=== PATIENT | female | born 1955 ===

== ENCOUNTER 2025-02-02 11:27 | Emergency (ER) | payer MEDICARE, SELFPAY ==
[2025-02-02 11:48] VITALS: BP 146/87; PULSE 86; RESP 16; TEMP 36.7; O2SAT 100; BMI 21.0
--- NOTE | 2025-02-02 12:13 | ED.GENADULT ---
HPI - General Adult General Chief complaint: Extremity Injury, Lower Stated complaint: R big toe numb Time Seen by Provider: 02/02/25 11:58 Source: patient Mode of arrival: ambulatory Limitations: no limitations History of Present Illness ED Provider: Gurdeep Adkins [facility] narrative: 70-year-old female with no significant past medical history presents to ED for numbness of right big toe for multiple months. Patient has been seen by multiple primary care providers and rigging foreman and she canceled them after they are consultation because she believe they do not know what they are doing. Patient denies any trauma, redness, bluish black discoloration, fever, chills, open wounds, pus discharge, or foul odor from right big toe. Patient wants an MRI. Patient has had normal x-rays in the past. Related Data Allergies Allergy/AdvReac Type Severity Reaction Status Date / Time No Known Allergies Allergy Verified 02/02/25 11:53 Review of Systems Review of Systems: RIght big toe numbness Yes all other systems are reviewed and are negative PMFSH Social History Social History Advance Directives: No Advance Directives Information Provided: No Do you have a plan to hurt others: No Plan Physical Exam ED Vital Signs: Vital Signs - 24 hr 02/02/25 11:48 02/02/25 12:40 Temperature 98.0 F 98.0 F Pulse Rate 86 86 Respiratory Rate 16 16 Blood Pressure 146/87 H 146/87 H Pulse Oximetry 100 100 Oxygen Delivery Method Room Air Room Air BMI result Body Mass Index 21.0 Const General: cooperative, healthy appearing, comfortable, no acute distress, well developed, alert, awake and Physically active Orientation/consciousness: patient oriented x3 HENMT Head: Yes normal to inspection, Yes No palpable skull fracture present, Yes normocephalic and Yes atraumatic Eyes General: appearance normal, both eyes and all related structures Neck Neck: Yes normal visual inspection, Yes full ROM, Yes no lymphadenopathy, Yes no meningeal signs, Yes trachea midline, Yes supple, No anterior neck swelling and No tender Chest Chest palpation & inspection: normal inspection of the chest and normal palpation of entire chest wall Resp Effort & Inspection: normal respiratory effort and able to speak in complete sentences Auscultation: clear to auscultation bilaterally Cardio Jugular venous distension: no JVD Heart sounds: S1 normal heart sound present and S2 normal heart sound present GI Inspection: Yes normal to inspection Palpation (GI): Soft to palpation, not firm, nontender, no guarding and not rigid General: Yes no CVA tenderness Back/Spine/Pelvis Back: no CVA tenderness and No back tenderness Skin General skin exam: no rashes or lesions noted, elasticity normal and turgor normal Neuro General: patient oriented x3, gait normal, tone normal, moves all extremities, Normal light touch and pain sensation, no meningeal signs, no focal motor deficits, CN's II-XI intact bilaterally and normal sensation to monofilament Extrem General: Yes normal to inspection, Yes full ROM and Yes capillary refill normal Ankle/foot/toe images: 1. Area of numbness as per patient, but yet she has sensation in the area when touched. Rest of extremity normal. Motor/neuro/vascular exam intact. Negative for erythema, ecchymosis, deformity, pus discharge, foul odor, open wound, or crepitus Psych Appearance: grossly normal, well kempt and not disheveled Medical Decision Making Medical Decision Making MDM Narrative: 70-year-old female presents to the ED with complaints of right big toe numbness for about 4-5 months without any trauma. Patient denies any redness, bluish black discoloration, hotness, coldness, swelling, fever, chills, calf pain, red rash, pus discharge, nonhealing wound, or foul odor. Patient denies any history of diabetes, hypertension. Patient has been seen by multiple rigging foreman and primary care provider. Patient states had had normal x-rays in the past. Patient was informed she will need an MRI. Patient comes to the ED requesting MRI. Physical exam negative for signs of osteomyelitis, diabetic foot, gout, septic joint, fracture, dislocation, arterial occlusion, DVT, necrotizing fasciitis, compartment syndrome, or any other life threatening eitologies. . Patient has sensation in foot. Patient does not want repeat x-ray. Patient request MRI. Patient informed MRI could not be done in the ED and should be ordered by PCP or rigging foreman. Patient informed to follow up with primary care provider, rigging foreman and neurologist. Not suspecting stroke. NIH score is 0. NO head CT scan indiciated. Patient explainaed worrsisome signs and informed to return to the ED if she has them. Differential Diagnosis Differential Diagnoses: The differential diagnosis associated with the presentation includes (Peripheral neuropathy numbness) Admission/Observation Consideration of admission/observation: Escalation of care including admission/observation considered Independent Historian Clinical information obtained from an independent historian. History obtained from or confirmed by: Other (Patient) Prescription Management I considered prescription management with: Other Discharge Plan Discharge Clinical Impression: Numbness of toes Patient Disposition: Home, Self-Care Instructions: Paresthesia (ED) Additional Instructions: Recommend follow-up with primary care provider. Recommend follow-up with rigging foreman. Return to the ED immediately for any redness, swelling, bluish black discoloration, hotness, coldness, red streaks, fever, chills, or any other concerning symptoms. Primary care provider needs to order outpatient MRI. [place] [facility] [place]Provider Group] (Right big toe numbness) [facility] [Provider Group] (Right big toe numbness) Wilbert Khan MD [Physician] - (Right big toe numbness) Stand Alone Forms: Work/School Release Interventions: ED Discharge Assessment Last Done: 02/02/25 12:40 Discharge Date/Time: 02/02/25 12:41 Print Language: Nepali
[2025-02-02 12:40] VITALS: BP 146/87; PULSE 86; RESP 16; TEMP 36.7; O2SAT 100
--- OUTSIDE RECORDS SUMMARY | 2025-02-02 14:50 | XMS_ITS | Clinical Summary ---
Author Organization [address] [place] [address] Address [address] [place] [address] Phone Care Team Providers Care Concrete Curer Name Role Phone Lela Lowery MD Primary Care Provider [phone] Allergies Active Allergy Reactions Criticality Noted Date Comments Lanolin 02/01/2017 Other Reaction(s): Hives/Urticaria Soap 02/01/2017 Other Reaction(s): Hives/Urticaria Ivory soap Medications aspirin 81 mg chewable tablet Take 1 Tablet by mouth. 3 Active vitamin B complex (B COMPLEX 1 ORAL) Take by mouth. Active blood pressure test kit-medium kit 1 Units by Does not apply route daily. 3 Active CALCIUM CARBONATE ORAL Take by mouth. Active celecoxib (CeleBREX) 200 mg capsule Take 1 Capsule by mouth. 3 Active CHOLECALCIFEROL, VITAMIN D3, ORAL Take by mouth. Active gabapentin (NEURONTIN) 100 mg capsule 1 tab by mouth twice daily 3 Active LUTEIN ORAL Take by mouth. Act bernadette MULTIVITAMIN ORAL Take by mouth. Activ e NUTRITIONAL SUPPLEMENTS ORAL Take by mouth. Active pantoprazole (PROTONIX) 40 mg EC tablet Take 1 Tablet by mouth. 3 Active traMADoL (ULTRAM) 50 mg tablet 3 Active ZINC ORAL Take by mouth. Activ e ammonium lactate (AmLactin) 12 % lotion Apply topically if needed for dry skin. 400 g 2 4 10/13/20 25 Active Active Problems Problem Noted Date Diagnosed Date Anxiety 09/08/2024 Hyperlipidemia 09/08/2024 Hypertension 09/08/2024 Major depression 09/08/2024 Herpes genitalis 09/06/2023 Odontoid fracture with type II morphology 2022 Overview (09/08/2024): b/l C1 lateral mass fractures Last Assessment & Plan: Patient is s/p fall while using her leaf blower 08/09/2023, lost her balance and fell on her left side, leaf blower hit her in the head, denies LOC, leaf blower actively with suctioning and her hair on her head, she had to walk into the house while bleeding from her scalp and holding the leaf blower overhead. She went to [facility], was found to have unstable fractures with nondisplaced odontoid fracture type II, asymmetric alignment of the dens and lateral masses of C1 suggesting instability, mildly comminuted nondisplaced fracture involving left lateral mass of C2 involving the vertebral foramen, CTA showed grade 1/2 injury of the left vertebral artery at the site of the C2 fracture. She had anterior dislocation right C1 lateral mass with respect to C2 lateral mass and posterior subluxation left C1 lateral mass with respect to C2 lateral mass. Head CT without acute hemorrhage. Patient was discharged home with an Hagerman collar. Patient states she does still have some neck pain 2-5/10, lives alone and is very independent, has been doing yard work, when she has increased activity her pain can get up to an 8/10. She denies any numbness tingling, pain or weakness in the arms or legs. She was discharged with gabapentin 100 mg 3 times daily, but wants to wean off of it. A month prior to her injury she had right hip replacement surgery, is no longer on Eliquis. She has been using ibuprofen in the morning and Tylenol through the day for her neck pain. Ms. Hayward has type II odontoid fracture, asymmetric alignment of the dens and lateral masses of C1 suggesting instability, left vertebral artery injury at the site of the C2 fracture into the foramen. Patient does not want to follow-up with trauma service at [facility]. I reviewed her case with Dr. Whitehead, it would be difficult to get open-mouth view x-ray to check C1 with patient in a rigid collar, Dr. Whitehead is recommending a follow-up CT scan in 2 months. I instructed the patient to stay in the rigid collar at all times. She states she had been told in the past by multiple people she could take the collar off at times, but states she typically leaves it on. She is requesting a refill on gabapentin, only has 10 tablets left at home, but plans to wean off over the next few weeks. I asked her to avoid NSAIDs to allow for bony healing. I gave her a prescription to get fitted with a new rigid cervical Hagerman collar. We reviewed imaging results together in detail. All questions answered. She will call with any additional questions or concerns. Peripheral venous insufficiency 09/06/2023 Osteoarthritis of right hip 08/09/2023 Urge incontinence 08/09/2023 Polyp of colon 04/01/2019 Chronic low back pain 08/07/2017 Lung nodule 08/07/2017 Overview (09/08/2024): Tiny, repeat in jul 2019 and 2020 Thyroid nodule 08/07/2017 Varicose veins of both lower extremities 017 Gastroesophageal reflux disease 03/13/2017 Chronic cough 02/01/2017 Overview (09/08/2024): Saw Umass, ph probe proved sig reflux. Non compliant with anti reflux diet. Pt refused reglan. Surgery not indicated unless she failes 3 mo of strict diet Toenail fungus 02/01/[address] of the chest 12/26/2016 Melanoma in situ 11/22/2016 Overview (09/08/2024): Right arm 09/2011 - excised Squamous cell skin cancer 11/22/2016 Overview (09/08/2024): Left forearm - ED&C Overactive bladder 10/16/2016 Encounters Date Type Department Care Team Description 02/02/2025 Telephone Orthopedic Surgery - [place] [id number] [address] Carlos Cornejo DPM from Last 3 Months Immunizations Name Administration Dates Next Due Influenza Quadravalent, MDCK , 0.5ml, with preservative (Flucelvax) 6mo and older 08/07/2017 Influenza trivalent, 0.5mL ( Fluad) 65yo and older 07/27/2023 Influenza trivalent, 0.5mL, preservative free (Fluarix; FluLaval; Fluzone) ages 6mo and older (Afluria) 3 years and older 08/24/2016,09/21/2010 Influenza trivalent, with preservative (Fluzone; Afluria) 6mo and older 07/11/2022,08/10/2021,08/13/2020,2018,08/19/2018,09/21/2010 Tdap Tetanus diptheria acell ular pertussis (Boostrix; Adacel) 7yo and older 08/19/2018 Zoster recombinant (Shingrix ) 19yo and older 10/31/2022,09/04/2022 Surgical History Surgery Date Site/Laterality Comments HIP ARTHROPLASTY 06/2023 Right PROCEDURE: HISTORICAL HIP REPLACEMENT; COMMENT: NEOS Medical History Medical History Date Comments Hypertension DX:Hypertension Hyperlipidemia DX:Hyperlipidemi a Anxiety DX:Anxiety Major depression DX:Major depres humaira Melanoma (CMS/HCC) DX:Melanoma ( HCC) Melanoma in situ 11/22/2016 DX:Melanoma in situ (HCC); COMMENT: Right arm 09/2011 - excised Squamous cell skin cancer 11/22/2016 DX:Squ amous cell skin cancer; COMMENT: Left forearm - ED&C Osteoarthritis of right hip DX:O steoarthritis of right hip GERD (gastroesophageal reflux disease) DX:GERD (gastroesophageal reflux disease) Pulmonary nodule, right DX:Pulmo nary nodule, right Urge incontinence DX:Urge incont inence Memory impairment DX:Memory impa irment Family History Medical History Relation Name Comments Heart attack Father Hypertension Father Other: liver cancer Father Breast cancer Mother Relation Name Status Comments Father Mother Social History Tobacco Use Types Packs/Day Years Used Date Smoking Tobacco: Former Smokeless Tobacco: Never Tobacco Cessation:Counseling Given: Not Answered Alcohol Use Standard Drinks/Week Comments Yes 0 (1 standard drink = 0.6 oz pur e alcohol) Comments Unknown Sex and Gender Information Value Date Recorded Sex Assigned at Not on file Legal Sex Female 9:54 PM EST Gender Identity Not on file Sexual Orientation Not on file Obstetrics History Last Filed Vital Signs Vital Sign Reading Time Taken Comments Blood Pressure 140/80 11/26/2023 2:14 PM EST Pulse 84 11/26/2023 1:59 PM EST Temperature - - Respiratory Rate - - Oxygen Saturation - - Inhaled Oxygen Concentration - - Weight 62.6 kg (138 lb) 10/13/2024 9:01 AM EST Height 172.7 cm (5' 7.99 ) 10/13/2024 9:01 AM ES T Body Mass Index 20.99 10/13/2024 9:01 AM EST Plan of Treatment Upcoming Encounters Date Type Department Care Team (Late st Contact Info) Description 08/31/2025 10:00 AM EST Office Visit Orthopedic Surgery - [place] [address] [facility] [address] [place] [id number] Carlos Cornejo, DPDevaughn 175 [facility] [address] [place] [address] Health Maintenance Due Date Last Done Comments Breast Cancer Screening 1955 Pneumococcal Vaccine: 50+ Years (1 of 2 - PCV) 01/02/1976 COVID-19 Vaccine (3 - Pfizer risk series) 05/04/2021 04/06/2021, 03/16/2021 Cholesterol Screening (Lipid Panel) 09/30/2022 08/07/2017 Colorectal Cancer Screening: Colonoscopy 09/30/2022 Depression Screening 09/30/2022 Falls Risk Assessment 09/30/2022 Medicare Annual Wellness Visit 09/30/2022 Osteoporosis Screening (Bone Density Screening) 09/30/2022 Social Influencers of Health Screening 09/30/2022 Hypertension/CHF/CAD Annual BMP Blood Test 10/14/2022 08/23/2017 DTaP,Tdap,and Td Vaccines (2 - Td or Tdap) 08/19/2028 08/19/2018 RSV Immunization Adult Patients (1 - 1-dose 75+ series) 01/02/2032 Hepatitis C Screening Completed 05/08/2016 Zoster Vaccines Completed 10/31/2022, 09/04/2022 Influenza Vaccine Completed 08/12/2024, , 07/11/2022, Additional history exists HIB Vaccines Aged Out No longer eligi ble based on patient's age to complete this topic HPV Vaccines Aged Out No longer eligi ble based on patient's age to complete this topic Hepatitis A Vaccines Aged Out No long er eligible based on patient's age to complete this topic Hepatitis B Vaccines Aged Out No long er eligible based on patient's age to complete this topic IPV Vaccines Aged Out No longer eligi ble based on patient's age to complete this topic MMR Vaccines Aged Out No longer eligi ble based on patient's age to complete this topic Meningococcal ACWY Vaccine Aged Out N o longer eligible based on patient's age to complete this topic Meningococcal B Vaccine Aged Out No l onger eligible based on patient's age to complete this topic RSV Immunization Patients Under 20 months Aged Out No longer eligible based on patient's age to complete this topic Varicella Vaccines Aged Out No longer eligible based on patient's age to complete this topic Procedures Procedure Name Priority Date/Time Associated Diagnosis Comments ANNUAL BMP BLOOD TEST Routine 08/23/2017 LIPID PANEL Routine 08/07/2017 HEPATITIS C SCREENING Routine 05/08/2016 from Last 3 Months or Most Recently Relevant to Health Maintenance Results * Annual BMP Blood Test (08/23/2017) Pathologist [facility] Annual BMP Blood Test Abstracted [facility] Provider HEALTH MAINTENANCE Final Result * Lipid panel (08/07/2017) Pathologist [facility] LDL/HDL Ratio 3 0 - 4 Triglycerides 117 0 - 150 mg/dL Cholesterol 144 0 - 200 mg/dL HDL 47 >=40 mg/dL LDL Cholesterol 74 0 - 100 mg/dL Blood Venous blood specimen / Unknown Historical Provider LAB BLOOD ORDERABLES Niki l Result * Hepatitis C Screening (05/08/2016) Pathologist [facility] Hepatitis C Screening Abstracted Historical Provider HEALTH MAINTENANCE Final Result from Last 3 Months or Most Recently Relevant to Health Maintenance Insurance MEDICARE [facility] MEDICA[employer]AGE Care Teams Concrete Curer Relationship Specialty Start Date End Date Lela Lowery MD PCP - General 04/10/23
--- OUTSIDE RECORDS SUMMARY | 2025-02-02 14:50 | XMS_ITS | Encounter Summary ---
Author Organization [facility] Address [id number] [place] [id number] Care Team Providers Care Porcelain Finish Sprayer Name Role Phone Lela Lowery MD Primary Care Provider [phone] Encounter Details Date Type Department Care Team (Late st Contact Info) Description 02/02/2025 Telephone Orthopedic Surgery - [place] [address] [phone] Carlos Cornejo DPM [address] [address] Social History Tobacco Use Types Packs/Day Years Used Date Smoking Tobacco: Former Smokeless Tobacco: Never Alcohol Use Standard Drinks/Week Comments Yes 0 (1 standard drink = 0.6 oz pur e alcohol) Comments Unknown Sex and Gender Information Value Date Recorded Sex Assigned at Not on file Legal Sex Female 9:54 PM EST Gender Identity Not on file Sexual Orientation Not on file documented as of this encounter Progress Notes * Lou Robles - 02/02/2025 2:04 PM EDT Deepti has come into the office requesting a MRI right great toe numbness please call when MRI orderis place documented in this encounter Plan of Treatment Upcoming Encounters Date Type Department Care Team (Late st Contact Info) Description 08/31/2025 10:00 AM EST Office Visit Orthopedic Surgery [facility] [address] [phone] Carlos Cornejo DPM [address] [address] documented as of this encounter Visit Diagnoses Not on filedocumented in this encounter Care Teams Porcelain Finish Sprayer Relationship Specialty Start Date End Date Lela Lowery MD PCP - General 04/10/23 documented as of this encounter
--- OUTSIDE RECORDS SUMMARY | 2025-02-02 14:51 | XMS_ITS ---
[facility] Name [facility] Encounters Encounter Type Encounter Reason Primary Diagnosis Location Date Ambulatory [facility] [place] 07/10/2024 Ambulatory [facility] [place] 07/10/2024
== END 2025-02-02 12:41 | disposition home or self-care (01) ==
PROVIDERS: Emergency Provider Emergency Medicine
DX: R20.0 Anesthesia of skin (principal)
CPT/HCPCS: 99282

== ENCOUNTER 2025-02-17 13:42 | Emergency (ER) | payer MEDICARE, SELFPAY ==
--- NOTE | ~2025-02-17 | CT_ITS ---
CLINICAL HISTORY: AMS CT Brain without contrast Comparison: None FINDINGS: Cortical sulci: There is diffuse prominence of the cortical sulci compatible with age-related atrophy. Ventricles: Normal for age Brain parenchyma: There is patchy lucency throughout the deep white matter indicating chronic microvascular leukomalacia. Extra-axial spaces: Normal Posterior Fossa: Normal Extracranial soft tissues: Normal Additional abnormality: None IMPRESSION: Age-related atrophy with chronic microvascular leukomalacia. No hemorrhage, mass effect, or acute findings identified. This document has been electronically signed by: Miranda Will MD on 02/17/2025 17:55:14
[2025-02-17 13:49] VITALS: BP 146/72; PULSE 94; O2SAT 99
[2025-02-17 14:08] VITALS: BP 159/92; PULSE 87; RESP 14; TEMP 36.2; O2SAT 99; BMI 19.8
--- NOTE | 2025-02-17 14:29 | ED_ITS ---
HPI - Psych General Chief Complaint: Psychiatric Symptoms Stated Complaint: SEC 12, CRISIS,DEPRESSED PER EMS Time Seen by Provider: 02/17/25 13:59 Source: patient and RN notes reviewed Mode of arrival: ambulatory Limitations: no limitations History of Present Illness ED Provider: Clemencia Martinez PA-C HPI Narrative: This is a 70-year-old female, with a history of hypertension, who presents emergency department via EMS on section 12 from [facility] with concerns for extreme weight loss and grand delusions. I initially saw patient being brought in by EMS, she was yelling, reporting that ?this better be fast, no longer than 20 minutes , patient very frustrated that she was here in the emergency department. I went and assess patient after she was changed over and placed in the Behavioral Health pod. Patient reports that she was very tired of everything?. She states that over the last year she has had ?issues? that are not being adequately seen to by any of the providers that she was seen. She states that she was referred to [facility] however states that she has had multiple appointments being canceled, and that no one is helping her. She was very vague in regards to this entire situation however states that she was told that she would be able to be seen in the emergency department, who would start her on medications, and then she would be discharged which he was hoping for. She states that she has a car, and a house, and a bank account and animals that she needs to take care of. She reports that she told individuals that she was ?tired of everything?, states that she has no suicidal or homicidal ideation. 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 She states that she fractured multiple bones in her neck and was placed in a cervical collar. She reports that there is ?something wrong in my head?, not in my neck but rather in my head. She reports she has no physical ailments, other than chronic right great toe numbness. She has only been seen here in the emergency department once which was several weeks ago for toe numbness. complaint: feels depressed Relieving factors: none Exacerbating factors: none Related Data Home Medications ?Medication ?Instructions ?Recorded ?Confirmed lisinopril 10 mg tablet 10 mg PO DAILY 02/17/25 02/17/25 trospium 60 mg capsule,extended 60 mg PO QAM 02/17/25 02/17/25 release 24 hr vibegron 75 mg tablet (Gemtesa) 75 mg PO DAILY 02/17/25 02/17/25 Allergies Allergy/AdvReac Type Severity Reaction Status Date / Time No Known Allergies Allergy Verified 02/17/25 14:09 Review of Systems 2 Review of Systems: Yes all other systems are reviewed and are negative Constitutional: Constitutional: Reports as per [facility] Social History Social History Unable to assess alcohol history related to: Refusing to respond Smoked in Last 30 Days: No Use of substances other than those prescribed or required for medical reasons: Refusing to respond Advance Directives: No Advance Directives Information Provided: Yes Do you have a plan to hurt others: No Plan Physical Exam 2 Vital Signs: Vital Signs: Last Vital Signs Temp 97.4 F 02/17/25 16:07 Pulse 78 02/17/25 16:07 Resp 16 02/17/25 16:07 BP 169/92 H 02/17/25 16:07 Pulse Ox 99 02/17/25 16:07 O2 Del Method Room Air 02/17/25 16:07 BMI result Body Mass Index 19.8 Const: General: cooperative, comfortable and no acute distress O rientation/consciousness: patient oriented x3 Limitations: no limitations HEENT: Head: Yes normal to inspection, Yes normocephalic and Yes atraumatic Ears: hearing grossly normal bilaterally General nose exam: Normal external nose present Face and sinus: Yes normal facial exam Mouth: Normal oral and palatal mucosa present, oropharynx normal and moist mucous membranes Throat: Yes posterior oropharynx normal Eyes: General: appearance normal, both eyes and all related structures E yelids: Yes eyelids normal Conjunctivae: conjunctivae normal Sclerae: s clerae normal Pupils: Equal, round and reactive pupils present EOM: EOMs intact bilaterally Neck: Neck: Yes normal visual inspection, Yes full ROM and Yes no lymphadenopathy Lymphatic: no lymphadenopathy noted Chest: Chest palpation & inspection: normal inspection of the chest Resp: Effort & Inspection: normal respiratory effort and able to speak in complete sentences Auscultation: clear to auscultation bilaterally, no crackles, no rales, no rhonchi and no wheezes Cardio: Rate: regular rate Rhythm: regular rhythm Heart sounds: S1 normal heart sound present and S2 normal heart sound present GI: Inspection: Yes normal to inspection Skin: General skin exam: no rashes or lesions noted Trauma: no lacerations or abrasions Wounds: no wounds Neuro: General: patient oriented x3 and moves all extremities Cranial nerves: Yes Equal, round and reactive pupils present Extrem: General: Yes normal to inspection Right upper extremity: normal to inspection Left upper extremity: normal to inspection Right lower extremity: normal to inspection Left lower extremity: normal to inspection Psych: Appearance: well kempt Mental Status: mental status grossly normal Speech and movement: Psychomotor agitation in speech present and Restless speech present Affect: Hostile affect present and Irritable affect present Attitude: cooperative and Guarded attititude/behavior present Thought process: Flight of ideas present and Loose association thought process present Thought content: Paranoid delusions present Insight: Poor insight present (Psych) Judgement: Poor judgement present (Psych) Course Reevaluation(s) Reevaluation #1: Patient was seen and evaluated by the care team. They have no safety concerns. Patient's overall workup today was reassuring. She has no leukocytosis, stable H&H, chemistry revealing no significant electrolyte derangement, slight hyper anemic at 5.3, given Lokelma. Urine does not appear to be infected. Positive for fentanyl. Patient adamantly reports that she did not use this. She does not smoke, in his unsure why this is positive. She was requesting a 2nd urine sample. She does not want to wait for the results. Head CT revealing age- related atrophy with chronic microvascular leukomalacia, but no acute process. Patient was eager for discharge. At this time patient can be lifted home. Patient stable for discharge Time: 18:55 Medications Administered Discontinued Medications Generic Name Dose Route Start Last Admin Trade Name Freq PRN Reason Stop Dose Admin Sodium Zirconium Cyclosilicate 10 gm 02/17/25 16:49 02/17/25 17:25 Sodium Zirconium Cyclosilicate 10 Gm Powd.Pack PO 02/17/25 16:50 10 gm ONCE ONE Administration Medical Decision Making Medical Decision Making MDM Narrative: This is a 70-year-old female who presents emergency department via EMS on section 12 for behavioral health concerns. On arrival, patient very agitated that she was here. She was placed on a section 12. She does have flight of ideas thought process as well as possible paranoia and delusions. We have no psychiatric medical history on this patient, she was only been seen in the emergency department once which was several weeks ago for numbness in her toes. She is nontoxic appearing, speaking in full sentences, she was alert and oriented x4. Vital signs reveal a slight hypertension at 159/92, all other vital signs within normal limits. Given that she has never been seen here psychiatrically, will obtain CT head to rule out any intracranial mass/process. Differential diagnoses include acute psychosis, paranoia, UTI, depression, anxiety Plan: Labs, UA, care team, CT head Differential Diagnosis Differential Diagnoses: The differential diagnosis associated with the presentation includes See above Admission/Observation Consideration of admission/observation: Escalation of care including admission/observation considered Consult Healthcare Provider Management of the patient was discussed with: Client Reporting Associate Care team Lab Data [facility] Lab Attestation statement: I reviewed the patient's lab results. See [facility] 02/17/25 14:44 02/17/25 14:44 Labs: Lab Results 02/17/25 Range/Units 14:44 WBC 7.0 (4.8-10.8) X10*3/uL RBC 4.26 (4.20-5.50) X10*6/uL Hgb 13.4 (12.0-16.0) g/dl Hct 41.0 (37.0-47.0) % MCV 96.2 (80.0-98.0) fL MCH 31.5 (27.0-33.0) pg MCHC 32.7 (31.0-35.0) g/dl RDW 13.5 (11.0-16.0) % Plt Count 181 (160-400) X10*3/uL MPV 10.9 (9.4-12.3) fL Immature Gran % (Auto) 0.6 H (0.0-0.4) % Neut % (Auto) 67.2 (45-73) % Lymph % (Auto) 20.6 (20-40) % [place] % (Auto) 9.8 (2-11) % Eos % (Auto) 1.4 (0-4) % Baso % (Auto) 0.4 (0-2) % Lymph # (Auto) 1.5 (1.2-4.9) X10*3/uL [place] # (Auto) 0.7 (0.1-1.2) X10*3/uL Eos # (Auto) 0.1 (0.0-0.4) X10*3/uL Baso # (Auto) 0.0 (0.0-0.2) X10*3/uL Abs Immat Gran (auto) 0.04 H (0.00-0.03) X10*3/uL Absolute Neuts (auto) 4.7 (2.0-8.3) x10*3/uL Absolute Nucleated RBC 0.000 (0.0-0.012) X10*3/uL Nucleated RBC % (auto) 0.0 (0.0-0.2) /100WBC Sodium 143 (135-145) mmol/L Potassium 5.3 H (3.3-5.1) mmol/L Chloride 110 H (96-108) mmol/L Carbon Dioxide 28 (22-29) mmol/L Anion Gap 10 L (12-20) BUN 19 H (9-16) mg/dL Creatinine 0.70 (0.5-1.4) mg/dL Estim Creat Clear Calc 71.6 Estimated GFR > 60 Random Glucose 87 (60-115) mg/dL Calcium 9.8 (8.4-10.2) mg/dL Total Bilirubin 0.6 (0.0-1.0) mg/dL AST 17 (5-31) U/L ALT 17 (0-31) U/L Alkaline Phosphatase 90 (39-117) U/L Total Protein 6.3 L (6.5-8.0) g/dL Albumin 4.1 (3.5-5.0) g/dL Urine Color Dark Yellow Urine Appearance Clear Urine pH 5.5 (5.0-9.0) Ur Specific [place] 1.020 (1.005-1.025) Urine Protein Negative (Neg-Trace) mg/dL Urine Glucose (UA) Negative (Negative) mg/dL Urine Ketones Trace (Negative) mg/dL Urine Blood Negative (Negative) Urine Nitrite Negative (Negative) Ur Leukocyte Esterase Negative (Negative) Salicylates < 5.0 L (15-30) mg/dL Urine Opiates Screen Not Detected (Not Detect) Ur Buprenorphine Scrn Not Detected (Not Detect) ng/mL Ur Oxycodone Screen Not Detected (Not Detect) ng/mL Urine Methadone Screen Not Detected (Not Detect) ng/mL Urine Fentanyl Screen POSITIVE H (Not Detect) Acetaminophen < 3 (<30) mcg/mL Ur Barbiturates Screen Not Detected (Not Detect) Ur Phencyclidine Scrn Not Detected (Not Detect) Ur Amphetamines Screen Not Detected (Not Detect) U Benzodiazepines Scrn Not Detected (Not Detect) Urine Cocaine Screen Not Detected (Not Detect) U Marijuana (THC) Screen Not Detected (Not Detect) Ethyl Alcohol < 10 mg/dL COVID-19 ([facility]) Negative (Negative) COVID-19 Clin Com See Note Independent Interpretation I performed an independent interpretation of an: EKG Interpretation: EKG normal sinus rhythm at a ventricular rate of 80 beats per minute, PACs also noted. No ST elevation or depression. Radiology Impression Discussion of test interpretation with radiology: I have reviewed the radiologist's reading. Radiologist Impression: FINDINGS: Cortical sulci: There is diffuse prominence of the cortical sulci compatible with age-related atrophy. Ventricles: Normal for age Brain parenchyma: There is patchy lucency throughout the deep white matter indicating chronic microvascular leukomalacia. Extra-axial spaces: Normal Posterior Fossa: Normal Extracranial soft tissues: Normal Additional abnormality: None IMPRESSION: Age-related atrophy with chronic microvascular leukomalacia. No hemorrhage, mass effect, or acute findings identified. This document has been electronically signed by: Miranda Will MD on 02/17/2025 17:55:14 Dictated By: Miranda Will MD Discharge Plan Discharge Clinical Impression: Agitation Patient Disposition: Home, Self-Care Instructions: Depression (ED) Additional Instructions: You were seen in the emergency department and you were seen by the care team. Please follow-up with all the resources that were provided to you. Your lab work was reassuring. You did have a elevated potassium level which we gave you a medication for, you should have this repeated to your primary care office. If any new or worsening symptoms occur including but not limited to severe chest pain, shortness of breath, please seek emergent care. Prescriptions: No Action lisinopril 10 mg tablet 10 mg PO DAILY trospium 60 mg capsule,extended release 24hr 60 mg PO QAM Gemtesa 75 mg tablet 75 mg PO DAILY Interventions: Coke-Suicide Risk Severity Scale Last Done: 02/17/25 15:38 Print Language: Choose Not To Answer
[2025-02-17 14:51] LABS: MANUAL DIFF FLAG NO
[2025-02-17 14:56] LABS: Appearance Urine Clear; Color Urine Dark Yellow; Glucose Urine UA Negative (Negative); Leukocyte Esterase Urine Negative (Negative); Nitrite Urine Negative (Negative); PH 5.5 (5.0-9.0); Urine Blood Negative (Negative); Urine Ketones Trace mg/dL (Negative); Urine Protein Negative (Neg-Trace)
[2025-02-17 14:57] LABS: Basophils Percent Auto 0.4 % (0-2); Eosinophils Absolute Auto 0.1 X10*3/uL (0.0-0.4); Eosinophils Percent Auto 1.4 % (0-4); Hemoglobin 13.4 g/dl (12.0-16.0); Imm Gran Abs Auto 0.04 X10*3/uL (0.00-0.03); Imm Gran Pct Auto 0.6 % (0.0-0.4); Lymphocytes Absolute Auto 1.5 X10*3/uL (1.2-4.9); Lymphocytes Percent Auto 20.6 % (20-40); Mean Corpuscular HGB Conc 32.7 g/dl (31.0-35.0); Mean Corpuscular Hemoglobin 31.5 pg (27.0-33.0); Mean Corpuscular Volume 96.2 fL (80.0-98.0); Mean Platelet Volume 10.9 fL (9.4-12.3); Monocytes Absolute Auto 0.7 X10*3/uL (0.1-1.2); Monocytes Percent Auto 9.8 % (2-11); Neutrophils Absolute Auto 4.7 x10*3/uL (2.0-8.3); Neutrophils Percent Auto 67.2 % (45-73); Platelet Count 181 X10*3/uL (160-400); Red Blood Count 4.26 X10*6/uL (4.20-5.50); Red Cell Distribution Width 13.5 % (11.0-16.0)
[2025-02-17 15:10] LABS: COVID-19 Test Negative (Negative); IDNOW Serial# 58CA691E
[2025-02-17 15:14] LABS: Acetaminophen LAB < 3 mcg/mL (<30); Alanine Aminotransferase 17 U/L (0-31); Albumin Level 4.1 g/dL (3.5-5.0); Alkaline Phosphatase 90 U/L (39-117); Anion Gap 10 (12-20); Aspartate Amino Transferase 17 U/L (5-31); Bilirubin Total 0.6 mg/dL (0.0-1.0); Blood Urea Nitrogen 19 mg/dL (9-16); Calcium 9.8 mg/dL (8.4-10.2); Carbon Dioxide 28 mmol/L (22-29); Chloride 110 mmol/L (96-108); Creatinine Clr Calc Pharmacy 71.6; Estimated Glomerular Filt Rate > 60; Ethanol < 10 mg/dL; Glucose Random 87 mg/dL (60-115); Potassium 5.3 mmol/L (3.3-5.1); Salicylate < 5.0 mg/dL (15-30); Sodium 143 mmol/L (135-145); Total Protein 6.3 g/dL (6.5-8.0)
[2025-02-17 15:24] LABS: Amphetamine Screen Urine Not Detected (Not Detect); Barbiturates, Urine Not Detected (Not Detect); Benzodiazepines Screen Urine Not Detected (Not Detect); Buprenorphine Scr Not Detected (Not Detect); Cannabinoid Screen Urine Not Detected (Not Detect); Cocaine Screen Urine Not Detected (Not Detect); Fentanyl, urine POSITIVE (Not Detect); Methadone Screen, Urine Not Detected (Not Detect); Opiate Screen Urine Not Detected (Not Detect); Oxycodone Screen Urine Not Detected (Not Detect); Phencyclidine Screen Urine Not Detected (Not Detect)
--- NOTE | 2025-02-17 15:27 | ECG_ITS ---
Test Reason : HYPERKALMIA Blood Pressure : */* mmHG Vent. Rate : 80 BPM Atrial Rate : 80 BPM P-R Int : 150 ms QRS Dur : 78 ms QT Int : 382 ms P-R-T Axes : 51 28 43 degrees QTcB Int : 440 ms Sinus rhythm with Premature atrial complexes Otherwise normal ECG No previous ECGs available Referred By: Clemencia Martinez Electronically Signed By: JACKELINE SCHUSTER
[2025-02-17 16:07] VITALS: BP 169/92; PULSE 78; RESP 16; TEMP 36.3; O2SAT 99
[2025-02-17] MEDS: Sodium Zirconium Cyclosilicate 10 GM POWD.PACK PO (17:25)
--- OUTSIDE RECORDS SUMMARY | 2025-02-17 17:50 | XMS_ITS | Encounter Summary ---
Author Organization [facility] Address [address] [place] [address] Care Team Providers Care Reservoir Engineering Manager Name Role Phone Lela Lowery MD Primary Care Provider Un available Norah Whitehead MD Unavailable [phone] Cierra Paz PA-C Unavailable Gerald Lambert PA-C Unavailable [facility] [place], Pcp Primary Care Provider Unavailabl e Encounter Details Date Type Department Care Team Description 09/06/2023 SCAN [facility] Medical [facility] Neurosurgery [place] [address] [id number] Cierra Paz PA-C [address] [id number] Social History Tobacco Use Types Packs/Day Years Used Date Smoking Tobacco: Former Smokeless Tobacco: Never Alcohol Use Standard Drinks/Week Comments Yes 0 (1 standard drink = 0.6 oz pur e alcohol) occas Sex Assigned at Date Recorded Not on file Job Start Date Occupation Industry Not on file Not on file Not on file COVID-19 Exposure Response Date Recorded In the last 10 days, have yo u been in contact with someone who was confirmed or suspected to have Coronavirus/COVID-19? No / Unsure 08/28/2023 10:22 AM EDT documented as of this encounter Plan of Treatment Not on file documented as of this encounter Visit Diagnoses Not on filedocumented in this encounter Care Teams Reservoir Engineering Manager Relationship Specialty Start Date End Date Lela Lowery MD PCP - General Internal Medicine 04/10/23 [facility] [place], Pcp 175 [facility] [address] [place] [id number] PCP - General Internal Medicine 02/04/24 Norah Whitehead MD [address] [address] Surgeon Neurosurgery 09/06/23 Cierra Paz PA-C [address] [address] Specialist Neurosurgery 09/06/23 Gerald Lambert PA-C [address] [address] Specialist Neurosurgery 09/06/23 documented as of this encounter
--- OUTSIDE RECORDS SUMMARY | 2025-02-17 17:50 | XMS_ITS | Encounter Summary ---
Author Organization [facility] Address [address] [place] [address] Care Team Providers Care Copy Center Specialist Name Role Phone Lela Lowery MD Primary Care Provider Un available Norah Whitehead MD Unavailable [phone] Cierra Paz PA-C Unavailable Gerald Lambert PA-C Unavailable [phone] [facility], Pcp Primary Care Provider Unavailabl e Encounter Details Date Type Department Care Team Description 09/07/2023 SCAN [facility] Neurosurgery [place] [address] [phone] Cierra Paz PA-C [address] [id number] Social History Tobacco Use Types Packs/Day Years [...] on filedocumented in this encounter Care Teams Copy Center Specialist Relationship Specialty Start Date End Date Lela Lowery MD PCP - General Internal Medicine 04/10/23 [facility], Pcp 175 [facility] [address] [place] [id number] PCP - General Internal Medicine 02/04/24 Norah Whitehead MD [address] [address] Surgeon Neurosurgery 09/06/23 Cierra Paz PA-C [address] [address] Specialist Neurosurgery 09/06/23 Gerald Lambert PA-C [address] [address] Specialist Neurosurgery 09/06/23 documented as of this encounter
--- OUTSIDE RECORDS SUMMARY | 2025-02-17 17:50 | XMS_ITS | Clinical Summary ---
Author Organization [facility] Address [address] [place] [address] Care Team Providers Care Steward/Stewardess Chief Cargo Vessel Name Role Phone Norah Whitehead MD Unavailable [phone] Cierra Paz PA-C Unavailable Gerald Lambert PA-C Unavailable [phone], Pcp Primary Care Provider Unavailabl e Allergies Active Allergy Reactions Severity Noted Date Comments Soap Hives/Urticaria 02/01/2017 Ivory soap Lanolin Hives/Urticaria 02/01/2017 Medications Medication Sig Dispensed Refills Start Date End Date Status Cholecalciferol (VITAMIN D-3 OR) Take by mouth. 0 Acti ve Multiple Vitamins-Minerals (MULTIVITAMIN OR) Take by mouth. 0 Act bernadette Zinc 50 MG Tab Take by mouth. 0 Active LUTEIN OR Take by mouth. 0 Active Nutritional Supplements (VITAMIN D BOOSTER OR) Take by mouth. 0 Active Calcium Carbonate-Vit D-Min (CALCIUM 1200 OR) Take by mouth. 0 Active B Complex Vitamins (B COMPLEX 1 OR) Take by mouth. 0 Active Blood Pressure Monitoring (Comfort Touch BP Cuff/Medium) Misc 1 Units by Does not apply route daily. 1 Each 0 06/19/2023 Active lisinopril (PRINIVIL,ZESTRIL) 10 MG tablet Take 1 Tablet by mouth daily for 90 days. 90 Tablet 1 08/28/2023 Active tramadol (ULTRAM) 50 MG tablet 0 08/27/2023 Active aspirin 81 MG chewable tablet Take 1 Tablet by mouth. 0 08/17/2023 Active celecoxib (CELEBREX) 200 MG capsule Take 1 Capsule by mouth. 0 07/10/2023 Active pantoprazole (PROTONIX) 40 MG tablet Take 1 Tablet by mouth. 0 07/10/2023 Active gabapentin (NEURONTIN) 100 MG capsule 1 tab by mouth twice daily 40 Capsule 0 09/06/2023 Active acetaminophen (TYLENOL) 500 MG tablet Take 1 Tablet by mouth every 6 hours as needed for Pain for up to 10 days. 60 Tablet 0 09/06/2023 Active Active Problems Problem Noted Date Herpes genitalis 09/06/2023 Peripheral venous insufficiency 09/06/20 23 Odontoid fracture with type II morphology ([facility]), b/l C1 lateral mass fractures 09/06/2023 Last Assessment & Plan: Patient is s/p [...] the leaf blower overhead. She went to [facility], was found to have unstable fractures with [...] hemorrhage. Patient was discharged home with an Shidler collar. Patient states she does still have [...] want to follow-up with trauma service at [facility]. I reviewed her case with Dr. Whitehead, [...] get fitted with a new rigid cervical Shidler collar. We reviewed imaging results together in detail. All questions answered. She will call with any additional questions or concerns. Osteoarthritis of right hip 08/09/2023 Urge incontinence 08/09/2023 Polyp of colon 04/01/2019 Varicose veins of both lower extremities 08/07/2017 Chronic low back pain 08/07/2017 Lung nodule 08/07/2017 Overview: Tiny, repeat in jul 2019 and 2020 Thyroid nodule 08/07/2017 Gastroesophageal reflux disease 03/13/20 17 Toenail fungus 02/01/2017 Chronic cough 02/01/2017 Overview: Saw [facility], ph probe proved sig reflux. Non compliant with anti reflux diet. Pt refused reglan. Surgery not indicated unless she failes 3 mo of strict diet Abnormal CT of the chest 12/26/2016 Melanoma in situ 11/22/2016 Overview: Right arm 09/2011 - excised Squamous cell skin cancer 11/22/2016 Overview: Left forearm - ED&C Overactive bladder 10/16/2016 History of melanoma 05/08/2016 Hypertension Hyperlipidemia Anxiety Major depression Resolved Problems Problem Noted Date Resolved Date Melanoma 05/08/2016 Immunizations Name Administration Dates Next Due COVID-19 (Pfizer) 04/06/2021,03/16/2021 Flu (Generic) 07/11/2022,,08/13/2020, 019,08/19/2018,09/21/2010 Influenza (> 6 Months) 08/24/2016,09/21/2010 Influenza Vaccine-quadrivale nt 4 Years Plus 08/07/2017 Influenza vaccine high dose age 65 and over 07/27/2023 Shingrix (Recombinant zoster vaccine) 10/31/2022,09/04/2022 Tdap 08/19/2018 Family History Medical History Relation Name Comments Hypertension Father CA Father liver cancer [Other] Father CA Breast Mother Relation Name Status Comments Father Mother [...] file Not on file Not on file Last Filed Vital Signs Vital Sign Reading Time Taken Comments Blood Pressure 140/80 11/26/2023 2:14 PM EST Pulse 84 11/26/2023 1:59 PM EST Temperature 37 ??C (98.6 ??F) 11/26/2023 1:59 PM EST Respiratory Rate 16 11/26/2023 1:59 PM EST Oxygen Saturation 99% 10/11/2016 2:11 PM EST Inhaled Oxygen Concentration - - Weight 62.6 kg (138 lb) 02/11/2024 3:11 PM EDT Height 172.7 cm (5' 8 ) 02/11/2024 3:11 PM EDT Body Mass Index 20.98 02/11/2024 3:11 PM EDT Plan of Treatment Health Maintenance Due Date Last Done Comments DEPRESSION SCREEN 1969 BONE DENSITY SCREENING 2022 FALL RISK ASSESSMENT 2022 PNEUMOCOCCAL VACCINE (1 - PCV) 2022 CHOLESTEROL SCREENING 08/07/2022 08/07/2017, 016 MAMMOGRAM 05/15/2023 05/15/2022, 05/0 11/2016, 02/10/2016 (External Completion), Additional history exists COLON CANCER SCREENING 05/08/2024 4 (External Completion of test per patient (Patient reports normal results)) Covid-19 Vaccine (2022-2 4 season) 2024 04/06/2021, 03/16/2021 INFLUENZA (Season Ended) 2025 023, 08/07/2017, 08/24/2016, Additional history exists DTAP/TDAP/TD (3 - Td or Tdap) 08/19/2028, 05/08/2016 (Refused) HEPATITIS C SCREENING Completed 05/08/2016 SHINGLES VACCINE Completed 10/31/2022, 09/04/2022 Care Teams Steward/Stewardess Chief Cargo Vessel Relationship Specialty Start Date End Date Community, Pcp [address] [address] PCP - General Internal Medicine 02/04/24 Norah Whitehead MD [address] [address] Surgeon Neurosurgery 09/06/23 Cierra Paz PA-C [address] [address] Specialist Neurosurgery 09/06/23 Gerald Lambert PA-C [address] [address] Specialist Neurosurgery 09/06/23
--- OUTSIDE RECORDS SUMMARY | 2025-02-17 17:50 | XMS_ITS | Encounter Summary ---
Author Organization [facility] Address [address] [place] [address] Care Team Providers Care Forest Fire Prevention Specialist Name Role Phone Lela Lowery MD Primary Care Provider Un available Norah Whitehead MD Unavailable [phone] Cierra Paz PA-C Unavailable [phone] Gerald Lambert PA-C Unavailable [phone] [facility], Pcp Primary Care Provider Unavailabl e Encounter Details Date Type Department Care Team Description 07/10/2023 Hospital Medical Records [address] [place] [address] Teja Sellers Social History Tobacco Use Types Packs/Day Years [...] suspected to have Coronavirus/COVID-19? No / Unsure 06/19/2023 9:38 AM EDT documented as of this encounter Plan of Treatment Not on file documented as of this encounter Visit Diagnoses Not on filedocumented in this encounter Care Teams Forest Fire Prevention Specialist Relationship Specialty Start Date End Date Lela Lowery MD PCP - General Internal Medicine 04/10/23 4 [facility], Pcp [address] [address] PCP - General Internal Medicine 02/04/24 Norah Whitehead MD [address] [phone] Surgeon Neurosurgery 09/06/23 Cierra Paz PA-C [address] [address] Specialist Neurosurgery 09/06/23 Gerald Lambert PA-C [address] [address] Specialist Neurosurgery 09/06/23 documented as of this encounter
--- OUTSIDE RECORDS SUMMARY | 2025-02-17 17:50 | XMS_ITS | Encounter Summary ---
Author Organization [facility] Address [address] [place] [address] Care Team Providers Care Advertising Assistant Name Role Phone Tree-Shell Dawson MD Primary Care Provider Unavailable Caryn Mae Primary Care Provider Ann Marieva Lela Esquivel MD Primary Care Provider Un available Norah Whitehead MD Unavailable [phone] Cierra Paz PA-C Unavailable [phone] Gerald Lambert PA-C Unavailable [phone] [facility], Pcp Primary Care Provider Unavailabl e Encounter Details Date Type Department Care Team Description 08/23/2016 Release of Information Medical Records [address] [place] [address] Abstract, Provider Social History Tobacco Use Types Packs/Day Years Used Date Smoking Tobacco: Former Smokeless Tobacco: Never Alcohol Use Standard Drinks/Week Comments Yes 0 (1 standard drink = 0.6 oz pur e alcohol) occas Sex Assigned at Date Recorded Not on file Job Start Date Occupation Industry Not on file Not on file Not on file documented as of this encounter Plan of Treatment Not on file documented as of this encounter Visit Diagnoses Not on filedocumented in this encounter Care Teams Advertising Assistant Relationship Specialty Start Date End Date Shell Irvin MD PCP - General Internal Medicine 02/01/1604/02/18 Caryn Mae PCP - General Internal Medicine 04/03/18 04/09/23 Lela Lowery MD PCP - General Internal Medicine 04/10/23 4 [facility], [address] [address] PCP - General Internal Medicine 02/04/24 Norah Whitehead MD [address] [address] Surgeon Neurosurgery 09/06/23 Cierra Paz PA-C [address] [address] Specialist Neurosurgery 09/06/23 Gerald Lambert PA-C [address] [address] Specialist Neurosurgery 09/06/23 documented as of this encounter
--- OUTSIDE RECORDS SUMMARY | 2025-02-17 17:50 | XMS_ITS | Encounter Summary ---
Author Organization [facility] Address [address] [place] [address] Care Team Providers Care Load Out Worker Name Role Phone Lela Lowery MD Primary Care Provider Un available Norah Whitehead MD Unavailable [phone] Cierra Paz PA-C Unavailable [phone] Gerald Lambert PA-C Unavailable [phone] [facility], Pcp Primary Care Provider Unavailabl e Encounter Details Date Type Department Care Team Description 07/10/2023 Hospital Medical Records [address] [place] [address] Social History Tobacco Use Types Packs/Day Years [...] on filedocumented in this encounter Care Teams Load Out Worker Relationship Specialty Start Date End Date Lela Lowery MD PCP - General Internal Medicine 04/10/23 4 [facility], Pcp [address] [address] PCP - General Internal Medicine 02/04/24 Norah Whitehead MD [address] [address] Surgeon Neurosurgery 09/06/23 Cierra Paz PA-C 175 [facility] [address] [place] [address] Specialist Neurosurgery 09/06/23 Gerald Lambert PA-C 175 [facility] [address] [place] [address] Specialist Neurosurgery 09/06/23 documented as of this encounter
--- OUTSIDE RECORDS SUMMARY | 2025-02-17 17:50 | XMS_ITS | Encounter Summary ---
Author Organization [facility] Address [address] [place] [address] Care Team Providers Care Tunnel Miner Name Role Phone Lela Lowery MD Primary Care Provider Un available Norah Whitehead MD Unavailable [phone] Cierra Paz PA-C Unavailable [phone] Gerald Lambert PA-C Unavailable [phone] [facility], Pcp Primary Care Provider Unavailabl e Encounter Details Date Type Department Care Team Description 11/28/2023 Orders Only Medical Records [address] [place] [address] Caryn Mae Social History Tobacco Use Types Packs/Day Years [...] on file documented as of this encounter Procedures Procedure Name Priority Date/Time Associated Diagnosis Comments OUTSIDE PLAIN FILM Routine 11/28/2022 documented in this encounter Results * OUTSIDE PLAIN FILM (11/28/2022) Caryn Mae RADIOLOGY documented in this encounter Visit Diagnoses Not on filedocumented in this encounter Care Teams Tunnel Miner Relationship Specialty Start Date End Date Lela Lowery MD PCP - General Internal Medicine 04/10/23 4 [facility] Pcp [address] [address] PCP - General Internal Medicine 02/04/24 Norah Whitehead MD [address] [address] Surgeon Neurosurgery 09/06/23 Cierra Paz PA-C [address] [address] Specialist Neurosurgery 09/06/23 Gerald Lambert PA-C [address] [address] Specialist Neurosurgery 09/06/23 documented as of this encounter
--- OUTSIDE RECORDS SUMMARY | 2025-02-17 17:50 | XMS_ITS | Encounter Summary ---
Author Organization [facility] Address [address] [place] [address] Care Team Providers Care Dog Barber Name Role Phone Tree-Shell Dawson MD Primary Care Provider Unavailable Caryn Mae Primary Care Provider Lela Crowley MD Primary Care Provider Un available Norah White[place] MD Unavailable [phone] Cierra Paz PA-C Unavailable [phone] Gerald Lambert PA-C Unavailable [phone] [facility], Pcp Primary Care Provider Unavailabl e Encounter Details Date Type Department Care Team Description 10/30/2017 Transfer Records Medical Records [address] [place] [address] Abstract, Provider Social History Tobacco Use Types [...] on filedocumented in this encounter Care Teams Dog Barber Relationship Specialty Start Date End Date Shell Irvin MD PCP - General Internal Medicine 02/01/1604/02/18 Caryn Mae PCP - General Internal Medicine 04/03/18 04/09/23 Lela Lowery MD PCP - General Internal Medicine 04/10/23 4 [facility], [address] [address] PCP - General Internal Medicine 02/04/24 Norah Whitehead MD [address] [address] Surgeon Neurosurgery 09/06/23 Cierra Paz PA-C [address] [address] Specialist Neurosurgery 09/06/23 Gerald Lambert PA-C [address] [address] Specialist Neurosurgery 09/06/23 documented as of this encounter
--- OUTSIDE RECORDS SUMMARY | 2025-02-17 17:50 | XMS_ITS | Encounter Summary ---
Author Organization [facility] Address [address] [place] [address] Care Team Providers Care Chief Data Officer Name Role Phone Tree-Shell Dawson MD Primary Care Provider Unavailable Caryn Mae Primary Care Provider Ann Marieva Lela Esquivel MD Primary Care Provider Un available Norah Whitehead MD Unavailable [phone] Cierra Paz PA-C Unavailable [phone] Gerald Lambert PA-C Unavailable [phone] [facility], [facility] Primary Care Provider Unavailabl e Encounter Details Date Type Department Care Team Description 11/23/2016 Costing Manager Report Medical Records [address] [place] [address] Social History Tobacco Use Types Packs/Day Years [...] on filedocumented in this encounter Care Teams Chief Data Officer Relationship Specialty Start Date End Date Tree-Shell Dawson MD PCP - General Internal Medicine 02/01/1604/02/18 Caryn Mae PCP - General Internal Medicine 04/03/18 04/09/23 Lela Lowery MD PCP - General Internal Medicine 04/10/23 4 [facility], Pcp 175 [facility] [address] [place] [address] PCP - General Internal Medicine 02/04/24 Norah Whitehead MD [address] [address] Surgeon Neurosurgery 09/06/23 Cierra Paz PA-C [address] [address] Specialist Neurosurgery 09/06/23 Gerald Lambert PA-C [address] [id number] Specialist Neurosurgery 09/06/23 documented as of this encounter
--- OUTSIDE RECORDS SUMMARY | 2025-02-17 17:50 | XMS_ITS | Encounter Summary ---
Author Organization [facility] Address [address] [place] [address] Care Team Providers Care Phone Representative Name Role Phone Shell Irvin MD Primary Care Provider Unavailable Caryn Mae Primary Care Provider Ann Marieva Lela Esquivel MD Primary Care Provider Un available Norah White[place] MD Unavailable [phone] Cierra Paz PA-C Unavailable [phone] Gerald Lambert PA-C Unavailable [phone] [facility], [facility] Primary Care Provider Unavailabl e Encounter Details Date Type Department Care Team Description 02/10/2016 Telephone Adult [facility] [address] [place] [address] Shell Irvin MD Social History Tobacco Use Types Packs/Day Years Used Date Smoking Tobacco: Former Alcohol Use Standard Drinks/Week Comments Not Asked 0 (1 standard drink = 0.6 oz pur e alcohol) Sex Assigned at Date Recorded Not on file Job Start Date Occupation Industry Not on file Not on file Not on file documented as of this encounter Plan of Treatment Not on file documented as of this encounter Visit Diagnoses Not on filedocumented in this encounter Care Teams Phone Representative Relationship Specialty Start Date End Date Shell Irvin MD PCP - General Internal Medicine 02/01/1604/02/18 Caryn Mae PCP - General Internal Medicine 04/03/18 04/09/23 Lela Lowery MD PCP - General Internal Medicine 04/10/23 4 [facility], Pcp [address] [place] [address] PCP - General Internal Medicine 02/04/24 Norah White[place] MD 175 [facility] [address] [place] [id number] Surgeon Neurosurgery 09/06/23 Cierra Paz PA-C [address] [address] Specialist Neurosurgery 09/06/23 Gerald Lambert PA-C 175 [facility] [address] [place] [address] Specialist Neurosurgery 09/06/23 documented as of this encounter
--- OUTSIDE RECORDS SUMMARY | 2025-02-17 17:50 | XMS_ITS | Encounter Summary ---
Author Organization [facility] Address [address] [place] [address] Care Team Providers Care Resident Care Coordinator Name Role Phone Lela Lowery MD Primary Care Provider Un available Norah Whitehead MD Unavailable [phone] Cierra Paz PA-C Unavailable [phone] Gerald Lambert PA-C Unavailable [phone] [facility], Pcp Primary Care Provider Unavailabl e Encounter Details Date Type Department Care Team Description 11/28/2023 Adult Secondary Education Instructor Report Medical Records [address] [place] [address] Candis Dailey MD Social History Tobacco Use Types Packs/Day [...] on filedocumented in this encounter Care Teams Resident Care Coordinator Relationship Specialty Start Date End Date Lela Lowery MD PCP - General Internal Medicine 04/10/23 4 [facility], Pcp [address] [address] PCP - General Internal Medicine 02/04/24 Norah Whitehead MD [address] [address] Surgeon Neurosurgery 09/06/23 Cierra Paz PA-C [address] [address] Specialist Neurosurgery 09/06/23 Gerald Lambert PA-C 175 [facility] [address] [place] [address] Specialist Neurosurgery 09/06/23 documented as of this encounter
--- OUTSIDE RECORDS SUMMARY | 2025-02-17 17:50 | XMS_ITS | Encounter Summary ---
Author Organization [facility] Address [address] [place] [address] Care Team Providers Care Cork Cutter Name Role Phone Lela Lowery MD Primary Care Provider Un available Norah Whitehead MD Unavailable [phone] Cierra Paz PA-C Unavailable [phone] Gerald Lambert PA-C Unavailable [phone] [facility], Pcp Primary Care Provider Unavailabl e Encounter Details Date Type Department Care Team Description 05/28/2023 Transfer Records Medical Records [address] [place] [address] Social History Tobacco Use Types Packs/Day Years [...] suspected to have Coronavirus/COVID-19? No / Unsure 05/22/2023 1:56 PM EDT documented as of this encounter Plan of Treatment Not on file documented as of this encounter Visit Diagnoses Not on filedocumented in this encounter Care Teams Cork Cutter Relationship Specialty Start Date End Date Lela Lowery MD PCP - General Internal Medicine 04/10/23 4 [facility], Pcp [address] [address] PCP - General Internal Medicine 02/04/24 Norah Whitehead MD [address] [id number] Surgeon Neurosurgery 09/06/23 Cierra Paz PA-C 175 [facility] [address] [place] [address] Specialist Neurosurgery 09/06/23 Gerald Lambert PA-C [address] [id number] Specialist Neurosurgery 09/06/23 documented as of this encounter
--- OUTSIDE RECORDS SUMMARY | 2025-02-17 17:50 | XMS_ITS | Encounter Summary ---
Author Organization [facility] Address [address] [place] [address] Care Team Providers Care Paint Formulator Name Role Phone Tree-Shell Dawson MD Primary Care Provider Unavailable Caryn Mae Primary Care Provider Unava Lela Esquivel MD Primary Care Provider Un available Norah Whitehead MD Unavailable [phone] Cierra Paz PA-C Unavailable [phone] Gerald Lambert PA-C Unavailable [phone] [facility], Pcp Primary Care Provider Unavailabl e Encounter Details Date Type Department Care Team Description 04/20/2016 Pipelines Laborer Report Medical Records [address] [place] [address] Miguel Duran Social History Tobacco Use Types Packs/Day Years Used Date Smoking Tobacco: Former Smokeless Tobacco: Never Alcohol Use Standard Drinks/Week Comments Not Asked [...] on filedocumented in this encounter Care Teams Paint Formulator Relationship Specialty Start Date End Date Tree-Shell Dawson MD PCP - General Internal Medicine 02/01/1604/02/18 Caryn Mae PCP - General Internal Medicine 04/03/18 04/09/23 Lela Lowery MD PCP - General Internal Medicine 04/10/23 4 [facility], Pcp [address] [place] [address] PCP - General Internal Medicine 02/04/24 Norah Whitehead MD [address] [address] Surgeon Neurosurgery 09/06/23 Cierra Paz PA-C [address] [address] Specialist Neurosurgery 09/06/23 Gerald Lambert PA-C 175 [facility] [address] [place] [address] Specialist Neurosurgery 09/06/23 documented as of this encounter
--- OUTSIDE RECORDS SUMMARY | 2025-02-17 17:50 | XMS_ITS | Encounter Summary ---
Author Organization [facility] Address [address] [place] [address] Care Team Providers Care Director Product Name Role Phone Lela Lowery MD Primary Care Provider Un available Norah Whitehead MD Unavailable [phone] Cierra Paz PA-C Unavailable [phone] Gerald Lambert PA-C Unavailable [phone] [facility], Pcp Primary Care Provider Unavailabl e Reason for Visit * Reason Onset Date Comments [facility] Call 08/29/2023 Encounter Details Date Type Department Care Team Description 08/29/2023 Telephone Adult Medicine - [address] [address] Lela Lowery MD [facility] Call Social History Tobacco Use Types Packs/Day Years [...] AM EDT documented as of this encounter Miscellaneous Notes * Telephone Encounter - Leslie Garcia - 08/29/2023 12:29 PM EDT [facility] CALL Which [facility] office is calling? [facility] Full name of caller: luis alberto The caller is A Physical Therapist Is the caller at the patients home?: NO Reason for call: pt is refusing the physical therapy sessions Does caller need an urgent call back? NO Was CONTACT Telephone # obtained above?: YES Fax #: - documented in this encounter Plan of Treatment Not on file documented as of this encounter Visit Diagnoses Not on filedocumented in this encounter Care Teams Director Product Relationship Specialty Start Date End Date Lela Lowery MD PCP - General Internal Medicine 04/10/[address] [place] [address] [address] PCP - General Internal Medicine 02/04/24 Norah Whitehead MD [address] [address] Surgeon Neurosurgery 09/06/23 Cierra Paz PA-C [address] [address] Specialist Neurosurgery 09/06/23 Gerald Lambert PA-C [address] [address] Specialist Neurosurgery 09/06/23 documented as of this encounter
--- OUTSIDE RECORDS SUMMARY | 2025-02-17 17:50 | XMS_ITS | Encounter Summary ---
Author Organization [facility] Address [address] [place] [address] Care Team Providers Care Voltage Regulator Assembler Name Role Phone Tree-Shell Dawson MD Primary Care Provider Unavailable Caryn Mae Primary Care Provider Ann Marieva Lela Esquivel MD Primary Care Provider Un available Norah Whitehead MD Unavailable [phone] Cierra Paz PA-C Unavailable [phone] Gerald Lambert PA-C Unavailable [phone] [facility], [facility] Primary Care Provider Unavailabl e Encounter Details Date Type Department Care Team Description 12/14/2016 Lining Stuffer Report Medical Records [address] [place] [address] Social History Tobacco Use Types Packs/Day Years [...] on filedocumented in this encounter Care Teams Voltage Regulator Assembler Relationship Specialty Start Date End Date Tree-Shell Dawson MD PCP - General Internal Medicine 02/01/1604/02/18 Caryn Mae PCP - General Internal Medicine 04/03/18 04/09/23 Lela Lowery MD PCP - General Internal Medicine 04/10/23 4 [facility], Pcp 175 [facility] [address] [place] [address] PCP - General Internal Medicine 02/04/24 Norah Whitehead MD [address] [address] Surgeon Neurosurgery 09/06/23 Cierra Paz PA-C [address] [address] Specialist Neurosurgery 09/06/23 Gerald Lambert PA-C [address] [phone] Specialist Neurosurgery 09/06/23 documented as of this encounter
--- OUTSIDE RECORDS SUMMARY | 2025-02-17 17:51 | XMS_ITS | Encounter Summary ---
Author Organization [facility] Address [address] [place] [address] Care Team Providers Care Naval Special Warfare Medic Name Role Phone Tree-Shell Dawson MD Primary Care Provider Unavailable Caryn Mae Primary Care Provider Ann Marieva Lela Esquivel MD Primary Care Provider Un available Norah Whitehead MD Unavailable [phone] Cierra Paz PA-C Unavailable [phone] Gerald Lambert PA-C Unavailable [phone] [facility], Pcp Primary Care Provider Unavailabl e Encounter Details Date Type Department Care Team Description 12/31/2016 Release of Information Medical Records [address] [place] [address] Abstract, Provider Social History Tobacco Use Types [...] on filedocumented in this encounter Care Teams Naval Special Warfare Medic Relationship Specialty Start Date End Date Shell Irvin MD PCP - General Internal Medicine 02/01/1604/02/18 Caryn Mae PCP - General Internal Medicine 04/03/18 04/09/23 Lela Lowery MD PCP - General Internal Medicine 04/10/23 4 [facility], [address] [address] PCP - General Internal Medicine 02/04/24 Norah Whitehead MD [address] [address] Surgeon Neurosurgery 09/06/23 Cierra Paz PA-C [address] [address] Specialist Neurosurgery 09/06/23 Gerald Lambert PA-C [address] [address] Specialist Neurosurgery 09/06/23 documented as of this encounter
--- OUTSIDE RECORDS SUMMARY | 2025-02-17 17:51 | XMS_ITS | Encounter Summary ---
Author Organization [facility] Address [address] [place] [address] Care Team Providers Care Hotel Or Motel Receptionist Name Role Phone Lela Lowery MD Primary Care Provider Un available Norah Whitehead MD Unavailable [phone] Cierra Paz PA-C Unavailable [phone] Gerald Lambert PA-C Unavailable [phone] [facility], Pcp Primary Care Provider Unavailabl e Encounter Details Date Type Department Care Team Description 11/20/2023 Transfer Records Medical Records [address] [place] [address] Social History Tobacco Use Types Packs/Day Years [...] on filedocumented in this encounter Care Teams Hotel Or Motel Receptionist Relationship Specialty Start Date End Date Lela Lowery MD PCP - General Internal Medicine 04/10/23 4 [facility], Pcp 175 [facility] [address] [place] [address] PCP - General Internal Medicine 02/04/24 Norha Whitehead MD [address] [address] Surgeon Neurosurgery 09/06/23 Cierra Paz PA-C [address] [address] Specialist Neurosurgery 09/06/23 Gerald Lambert PA-C 175 [facility] [address] [place] [address] Specialist Neurosurgery 09/06/23 documented as of this encounter
--- OUTSIDE RECORDS SUMMARY | 2025-02-17 17:51 | XMS_ITS | Encounter Summary ---
Author Organization [facility] Address [address] [place] [address] Care Team Providers Care Judge Clerk Name Role Phone Shell Irvin MD Primary Care Provider Unavailable Caryn Mae Primary Care Provider Lela Crowley MD Primary Care Provider Un available Norah Whitehead MD Unavailable [phone] Cierra Paz PA-C Unavailable [phone] Gerald Lambert PA-C Unavailable [phone] [facility], Pcp Primary Care Provider Unavailabl e Reason for Referral * EXTERNAL (Routine) - Authorized/Booked Specialty Diagnoses / Procedures Referred By Yahir johnson Referred To Contact Endocrinology Procedures REFERRAL TO ENDOCRINOLOGY Shell Irvin MD [address] [place] [address] Nicki Lyon MD [address] [place] [address] [place] [address] Referral ID Status Reason Start Date Expiration Date V isits Requested Visits Authorized SEE NOTE Authorized/B ooked 03/14/2017 06/15/2017 1 1 Reason for Visit * Reason Onset Date Comments Boom Master Feedback 03/14/2017 endocrinology Encounter Details Date Type Department Care Team Description 03/14/2017 Telephone Adult Medicine - [place] [address] [place] [address] Shell Irvin MD Boom Master Feedback (endocrinology) Social History Tobacco Use Types Packs/Day Years Used Date Smoking Tobacco: Former Smokeless Tobacco: Never Alcohol Use Standard Drinks/Week Comments Yes 0 (1 standard drink = 0.6 oz pur e alcohol) occas Sex Assigned at Date Recorded Not on file Job Start Date Occupation Industry Not on file Not on file Not on file documented as of this encounter Miscellaneous Notes * Telephone Encounter - Shell rIvin MD - 03/14/2017 12:47 PM EDT signed * Telephone Encounter - Bia Trejo - 03/14/2017 9:51 AM EDT An internal endocrinology referral was placed but patient would like to be seen externally. New order is required. The order has been pended Please review this new referral request. The referral has been pended. Please complete the following: If approved> sign order If denied>please give instructions and route to your practice nursing pool. Practice nurse should inform referrals and the patient if denied. Thank you, Bia Referrals Coordinator [facility] Referrals Department documented in this encounter Plan of Treatment Not on file documented as of this encounter Visit Diagnoses Not on filedocumented in this encounter Care Teams Judge Clerk Relationship Specialty Start Date End Date Shell Irvin MD PCP - General Internal Medicine 02/01/1604/02/18 Caryn Mae PCP - General Internal Medicine 04/03/18 04/09/23 Lela Lowery MD PCP - General Internal Medicine 04/10/[address] [place] [address], Pcp 175 [facility] [address] [place] [address] PCP - General Internal Medicine 02/04/24 Norah Whitehead MD [address] [address] Surgeon Neurosurgery 09/06/23 Cierra Paz PA-C [address] [address] Specialist Neurosurgery 09/06/23 Gerald Lambert PA-C 175 [facility] [address] [place] [address] Specialist Neurosurgery 09/06/23 documented as of this encounter
--- OUTSIDE RECORDS SUMMARY | 2025-02-17 17:51 | XMS_ITS | Encounter Summary ---
Author Organization [facility] Address [address] [place] [address] Care Team Providers Care Forestry Aid Technician Name Role Phone [place] Dawson MD Primary Care Provider Unavailable Caryn Mae Primary Care Provider Lela Crowley MD Primary Care Provider Un available Norah Whitehead MD Unavailable [phone] Cierra Paz PA-C Unavailable LambertGerald layton PA-C Unavailable [phone] [facility], Pcp Primary Care Provider Unavailabl e Encounter Details Date Type Department Care Team Description 04/23/2017 Orders Only Chiropractic - [address] [address] Yfn Lynch D.C. Lumbosacral ligament sprain, initial encounter (Primary Dx) Social History Tobacco Use Types Packs/Day Years [...] on file documented as of this encounter Results * X-RAY EXAM OF LOWER SPINE WITH OBLIQUES (04/27/2017 9:58 AM EDT) 04/27/2017 10:1 5 AM EDT Impressions [facility] OTHER EXTERNAL - 04/27/2017 10:19 AM EDT IMPRESSION: Compression fracture versus developmental variant configuration of the L3 vertebral body. Degenerative changes as above. Narrative [facility] OTHER EXTERNAL - 04/27/2017 10:19 AM EDT History: Low back pain. Lumbosacral spine, 5 views: There is some minimal depression of the anterior aspect of the superior endplate of L3 and a lucency across the superior corner of the vertebral body. The appearance most likely represents a compression deformity and marginal endplate fracture. This could conceivably represent a limbus vertebral body and Schmorl's node. Comparison with older radiographs would be helpful if any exist. There is severe disc degeneration at L5-S1. The remaining disc spaces are well preserved. There is mild to moderate facet degeneration most advanced inferiorly. Alignment is normal. There is some minimal calcification of the abdominal aorta. Procedure Note Abhay Mclaughlin MD - 04/27/2017 History: Low back pain. Lumbosacral spine, 5 views: There is some minimal depression of theanterior aspect of the superior endplate of L3 and a lucency across the superior corner of thevertebral body. The appearance most likely represents a compression deformity and marginalendplate fracture. This could conceivably represent a limbus vertebral body and Schmorl's node.Comparison with older radiographs would be helpful if any exist. There is severe disc degeneration at L5-S1. The remaining disc spaces arewell preserved. There is mild to moderate facet degeneration most advanced inferiorly.Alignment is normal. There is some minimal calcification of the abdominal aorta. IMPRESSION IMPRESSION: Compression fracture versus developmental variantconfiguration of the L3 vertebral body. Degenerative changes as above. Porsha Orta NP RADIOLOGY [facility] OTHER EXTERNAL documented in this encounter Visit Diagnoses Diagnosis Lumbosacral ligament sprain, initial encounter- Primary Lumbosacral ligament sprain, initial encounter documented in this encounter Care Teams Forestry Aid Technician Relationship Specialty Start Date End Date [place] Dawson MD PCP - General Internal Medicine 02/01/1604/02/18 Caryn aMe PCP - General Internal Medicine 04/03/18 04/09/23 Lela Lowery MD PCP - General Internal Medicine 04/10/[address] [place] [address], Pcp [address] [place] [address] PCP - General Internal Medicine 02/04/24 Norah Whitehead MD 175 [facility] [address] [place] [address] Surgeon Neurosurgery 09/06/23 Cierra Paz PA-C [address] [address] Specialist Neurosurgery 09/06/23 Gerald Lambert PA-C 175 [facility] [address] [place] [address] Specialist Neurosurgery 09/06/23 documented as of this encounter
--- OUTSIDE RECORDS SUMMARY | 2025-02-17 17:51 | XMS_ITS | Encounter Summary ---
Author Organization [facility] Address [address] [place] [address] Care Team Providers Care Travel Assistant Name Role Phone [place]-Shell Dawson MD Primary Care Provider Unavailable Caryn Mae Primary Care Provider Unava Lela Esquivel MD Primary Care Provider Un available Norah Whitehead MD Unavailable [phone] Cierra Paz PA-C Unavailable [phone] Gerald Lambert PA-C Unavailable [phone] [facility], Pcp Primary Care Provider Unavailabl e Encounter Details Date Type Department Care Team Description 12/26/2016 Manager Nursing Report Medical Records [address] [place] [address] [facility] Social History Tobacco Use Types Packs/Day Years [...] on filedocumented in this encounter Care Teams Travel Assistant Relationship Specialty Start Date End Date Tree-Shell Dawson MD PCP - General Internal Medicine 02/01/1604/02/18 Caryn Mae PCP - General Internal Medicine 04/03/18 04/09/23 Lela Lowery MD PCP - General Internal Medicine 04/10/23 4 [facility], [address] [address] PCP - General Internal Medicine 02/04/24 Norah Whitehead MD [address] [address] Surgeon Neurosurgery 09/06/23 Cierra Paz PA-C [address] [address] Specialist Neurosurgery 09/06/23 Gerald Lambert PA-C [address] [address] Specialist Neurosurgery 09/06/23 documented as of this encounter
--- OUTSIDE RECORDS SUMMARY | 2025-02-17 17:51 | XMS_ITS | Encounter Summary ---
Author Organization [facility] Address [address] [place] [address] Care Team Providers Care Websphere Commerce Architect Name Role Phone Tree-Shell Dawson MD Primary Care Provider Unavailable Caryn Mae Primary Care Provider Lela Crowley MD Primary Care Provider Un available Norah Whitehead MD Unavailable [phone] Cierra Paz PA-C Unavailable [phone] Gerald Lambert PA-C Unavailable [phone] [facility], [facility] Primary Care Provider Unavailabl e Encounter Details Date Type Department Care Team Description 06/25/2017 Mammal Control Agent Report Medical Records [address] [place] [address] Ko Fraire MD Social History Tobacco Use Types Packs/Day [...] on filedocumented in this encounter Care Teams Websphere Commerce Architect Relationship Specialty Start Date End Date Tree-Shell Dawson MD PCP - General Internal Medicine 02/01/1604/02/18 Caryn Mae PCP - General Internal Medicine 04/03/18 04/09/23 Lela Lowery MD PCP - General Internal Medicine 04/10/23 4 [facility], Pcp [address] [place] [address] PCP - General Internal Medicine 02/04/24 Norah Whitehead MD [address] [address] Surgeon Neurosurgery 09/06/23 Cierra Paz PA-C [address] [address] Specialist Neurosurgery 09/06/23 Gerald Lambert PA-C 175 [facility] [address] [place] [address] Specialist Neurosurgery 09/06/23 documented as of this encounter
--- OUTSIDE RECORDS SUMMARY | 2025-02-17 17:51 | XMS_ITS | Clinical Summary ---
Author Organization [address] [place] [address] Address [address] [place] [address] Phone Care Team Providers Care Senior Asp Net Developer Name Role Phone Lela Lowery MD Primary Care Provider [phone] Allergies Active Allergy Reactions Criticality Noted Date [...] 09/06/2023 Odontoid fracture with type II morphology (CMS/HCC V24, CMS/HCC V28) 09/06/2023 Overview (09/08/2024): b/l C1 lateral mass fractures [...] the leaf blower overhead. She went to [facility], was found to have unstable fractures with [...] hemorrhage. Patient was discharged home with an Kenvir collar. Patient states she does still have [...] want to follow-up with trauma service at [facility]. I reviewed her case with Dr. [...] get fitted with a new rigid cervical Kenvir collar. We reviewed imaging results together in [...] 03/13/2017 Chronic cough 02/01/2017 Overview (09/08/2024): Saw [place], ph probe proved sig reflux. Non compliant with anti reflux diet. Pt refused reglan. Surgery not indicated unless she failes 3 mo of strict diet Toenail fungus 02/01/[address] of the chest 12/26/2016 Melanoma in situ (CMS/HCC V24, CMS/HCC V28) 10/30 Overview (09/08/2024): Right arm 09/2011 - excised Squamous cell skin cancer 11/22/2016 Overview (09/08/2024): Left forearm - ED&C Overactive bladder 10/16/2016 Encounters Date Type Department Care Team Description 02/02/2025 Telephone Orthopedic Surgery - [place] 250 175 [facility] [address] [place] [phone] Carlos Cornejo DPM from Last 3 [...] DX:Anxiety Major depression DX:Major depres humaira Melanoma ([facility] V24, [facility] V28) DX:Melanoma (HCC) Melanoma in situ (CMS/[facility] V2 4, [facility] V28) 11/22/2016 DX:Melanoma in situ (HCC); C OMMENT: Right arm 09/2011 - excised Squamous cell [...] Care Team (Late st Contact Info) Description 03/17/2025 1:00 PM EDT Office Visit Orthopedic Surgery [place] [address] [phone] Carlos Cornejo DPM [address] [address] 08/31/2025 10:00 AM EST Office Visit Orthopedic Surgery [facility] [address] [phone] Carlos Cornejo DPM [address] [address] Health Maintenance Due Date Last Done Comments [...] * Annual BMP Blood Test (08/23/2017) Pathologist formerly [facility] Annual BMP Blood Test Abstracted Historical Provider HEALTH MAINTENANCE Final Result * Lipid panel (08/07/2017) Pathologist [facility] LDL/HDL Ratio 3 0 - 4 Triglycerides 117 0 - 150 mg/dL Cholesterol 144 0 - 200 mg/dL HDL 47 >=40 mg/dL LDL Cholesterol 74 0 - 100 mg/dL Blood Venous blood specimen / Unknown Historical Provider LAB BLOOD ORDERABLES Niki l Result * Hepatitis C Screening (05/08/2016) Pathologist [facility] Hepatitis C Screening Abstracted us Historical Provider HEALTH MAINTENANCE Final Result from Last 3 Months or Most Recently Relevant to Health Maintenance Insurance MEDICARE [facility] MEDICAID [employer] Care Teams Senior Asp Net Developer Relationship Specialty Start Date End Date Lela Lowery MD PCP - General 04/10/23
--- OUTSIDE RECORDS SUMMARY | 2025-02-17 17:51 | XMS_ITS | Encounter Summary ---
Author Organization [facility] Address [address] [place] [address] Care Team Providers Care Order Taker Name Role Phone Tree-Shell Dawson MD Primary Care Provider Unavailable Caryn Mae Primary Care Provider Unava Lela Esquivel MD Primary Care Provider Un available Norah Whitehead MD Unavailable [phone] Cierra Paz PA-C Unavailable [phone] Gerald Lambert PA-C Unavailable [phone] [facility], Pcp Primary Care Provider Unavailabl e Encounter Details Date Type Department Care Team Description 03/13/2017 Invoice Checker Report Medical Records [address] [place] [address] [facility] Social History Tobacco Use Types Packs/Day Years [...] on filedocumented in this encounter Care Teams Order Taker Relationship Specialty Start Date End Date Tree-Shell Dawson MD PCP - General Internal Medicine 02/01/1604/02/18 Caryn Mae PCP - General Internal Medicine 04/03/18 04/09/23 Lela Lowery MD PCP - General Internal Medicine 04/10/23 4 [facility], [address] [address] PCP - General Internal Medicine 02/04/24 Norah Whitehead MD [address] [address] Surgeon Neurosurgery 09/06/23 Cierra Paz PA-C [address] [address] Specialist Neurosurgery 09/06/23 Gerald Lambert PA-C [address] [address] Specialist Neurosurgery 09/06/23 documented as of this encounter
[2025-02-17 19:08] VITALS: BP 128/70; PULSE 80; RESP 18; TEMP 37; O2SAT 100
[2025-02-17 19:25] LABS: Amphetamine Screen Urine Not Detected (Not Detect); Barbiturates, Urine Not Detected (Not Detect); Benzodiazepines Screen Urine Not Detected (Not Detect); Buprenorphine Scr Not Detected (Not Detect); Cannabinoid Screen Urine Not Detected (Not Detect); Cocaine Screen Urine Not Detected (Not Detect); Fentanyl, urine Not Detected (Not Detect); Methadone Screen, Urine Not Detected (Not Detect); Opiate Screen Urine Not Detected (Not Detect); Oxycodone Screen Urine Not Detected (Not Detect); Phencyclidine Screen Urine Not Detected (Not Detect)
--- NOTE | 2025-02-18 13:37 | MHC.CARE ---
Lengthy call from patient asking to speak with Janell, the CARE Team clinician who evaluated and discharged her yesterday. Was quite distressed and overwhelmed about [facility] and the co-response team (three people) going to her house today, this was a 3-day f/u. She did not understand why they came, does not want [facility] help from [facility] because of past bad experiences with appointments being canceled. Patient was intermittently dysregulated and yelling, able to calm herself, responded well to patience and encouragement. Some of the things she mentioned struggling with are memory impairment, ADLs, shopping and making meals, cleaning/organizing her home, does not know how to work her television, needs help keeping track of appointment and noted she cannot have a conversation with more than one person at a time due to her head injury. Patient is expecting a call from Janell tomorrow and stated that she was the kindest person who understood how to speak with her and made her feel at ease.
== END 2025-02-17 19:10 | disposition home or self-care (01) ==
PROVIDERS: Physician Assistant Medical; Emergency Provider Emergency Medicine
DX: F33.1 Major depressive disorder, recurrent, moderate (principal); E87.5 Hyperkalemia; R41.82 Altered mental status, unspecified; R45.1 Restlessness and agitation; F43.9 Reaction to severe stress, unspecified; R41.3 Other amnesia; R20.0 Anesthesia of skin; F11.90 Opioid use, unspecified, uncomplicated; I10 Essential (primary) hypertension; Z11.52 Encounter for screening for COVID-19; Z51.81 Encounter for therapeutic drug level monitoring; Z79.899 Other long term (current) drug therapy
CPT/HCPCS: 70450; 80053; 80143; 80179; 80307; 81003; 85025; 87635; 93005; 99285; S9485

== ENCOUNTER → 2025-02-17 15:27 | Outpatient (BNV) | payer MEDICARE, SELFPAY | PROVIDERS: Emergency Provider Emergency Medicine; Visit Provider Internal Medicine | DX: I49.1 Atrial premature depolarization (principal) | CPT/HCPCS: 93010 ==

== ENCOUNTER → 2025-02-17 15:27 | Outpatient (BNV) | payer MEDICARE, SELFPAY | PROVIDERS: Emergency Provider Emergency Medicine; Visit Provider Nuclear Medicine | DX: G31.1 Senile degeneration of brain, not elsewhere classified (principal) | CPT/HCPCS: 70450 ==

== ENCOUNTER 2025-10-02 14:46 | Outpatient (REF) | payer MEDICARE, OTHER, SELFPAY ==
--- NOTE | 2025-10-02 14:56 | EMG_ITS ---
Chief complaint: Right big toe numbness Reason for referral: Evaluate for neuropathy Referred by: Carlos Cornejo DPM Procedure done: Left lower extremity NCS/EMG Precautions and/or limitations: None The limb temperature was monitored continuously and remained between 32-36 degrees C during the performance of the NCS. Nerve Conduction Studies Anti Sensory Summary Table ?Stim Site NR Onset (ms) Norm Onset (ms) Peak (ms) Norm Peak (ms) O-P Amp (?V) Norm O-P Amp Site1 Site2 Delta-0 (ms) Dist (cm) Martín (m/s) Norm Martín (m/s) Right Sup Peron Anti Sensory (Ankle) Lateral Leg NR <4.4 >5.0 Lateral Leg Ankle 14.0 Right Sural Anti Sensory (Lat Mall) Calf ? 2.6 3.4 <4.0 11.2 >5.0 Calf Lat Mall 2.6 14.0 54 Motor Summary Table ?Stim Site NR Onset (ms) Norm Onset (ms) O-P Amp (mV) Norm O-P Amp iAmp (mV) Amp (1st) (%) Site1 Site2 Delta-0 (ms) Dist (cm) Martín (m/s) Norm Martín (m/s) Right Peroneal Motor (Ext Dig Brev) Ankle ? 4.8 <4.0 3.5 >2.5 4.0 100.0 Ankle Ext Dig Brev 4.8 0.0 B Fib ? 12.0 2.8 3.3 80.0 B Fib Ankle 7.2 34.0 47 >40 Poplt ? 13.0 2.6 3.1 74.3 Poplt B Fib 1.0 5.5 55 >40 Right Tibial Motor (Abd Hernandez Brev) Ankle ? 4.1 <5 3.2 >2.5 4.2 100.0 Ankle Abd Hernandez Brev 4.1 0.0 Knee ? 11.6 3.1 4.6 96.9 Knee Ankle 7.5 36.0 48 >40 EMG ?Side Muscle Nerve Root Ins Act Fibs Psw Amp Dur Poly Recrt Int Pat Comment Right AbdHallucis MedPlantar S1-2 Nml Nml Nml Nml Nml 0 Nml Complete Right AntTibialis Dp Br Peron L4-5 Nml Nml Nml Nml Nml 0 Nml Complete Right PostTibialis Tibial L5, S1 Nml Nml Nml Nml Nml 0 Nml Complete Right MedGastroc Tibial S1-2 Nml Nml Nml Nml Nml 0 Nml Complete Right VastusMed Femoral L2-4 Nml Nml Nml Nml Nml 0 Nml Complete FINDINGS: Left peroneal nerve showed prolonged distal latency, normal amplitude and normal conduction velocity. No conduction block across fibular neck. Left superficial peroneal sensory nerves showed absent response. All other nerves tested were within normal. Concentric needle EMG was performed in selected muscles of the left lower extremity. Study did not reveal signs of electric abnormalities as shown in the table above. IMPRESSION: 1. This is an abnormal study. 2. 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 3. There is no electrodiagnostic evidence for tibial neuropathy, lumbosacral plexopathy, lumbar radiculopathy, or peripheral neuropathy. Thank you for your kind referral. Jennifer Santillan MD, JOSE Board Certified, [place] Board [employer] and Rehabilitation (ABPMR) Board Certified, [place] Board of Electrodiagnostic Medicine (ABEM) CODIN 38892 x 1 extremity MTDD
--- OUTSIDE RECORDS SUMMARY | 2025-10-02 18:51 | XMS_ITS ---
Author Name [facility] Organization Unknown Encounters Encounter Type Encounter Reason Primary Diagnosis Location Date Ambulatory [facility] [place] 07/10/2024 Ambulatory [facility] [place] 07/10/2024
--- OUTSIDE RECORDS SUMMARY | 2025-10-02 18:51 | XMS_ITS | Clinical Summary ---
Author Organization 175 [facility] Address [address] [place] [address] Phone Care Team Providers Care Psychosocial Rehabilitation Counselor Name Role Phone Lela Lowery MD Primary Care Provider [phone] Allergies Active Allergy Reactions Criticality Noted Date [...] 09/06/2023 Odontoid fracture with type II morphology ([facility] V24, [facility] V28) 09/06/2023 Overview (09/08/2024): b/l C1 lateral [...] the leaf blower overhead. She went to [facility], was found to have unstable [...] hemorrhage. Patient was discharged home with an Monon collar. Patient states she does still have [...] the day for her neck pain. Ms. Guzman has type II odontoid fracture, asymmetric alignment of the dens and lateral masses of C1 suggesting instability, left vertebral artery injury at the site of the C2 fracture into the foramen. Patient does not want to follow-up with trauma service at [facility]. I reviewed her case with Dr. Whitehead, [...] get fitted with a new rigid cervical Monon collar. We reviewed imaging results together in [...] of the chest 12/26/2016 Melanoma in situ ([facility] V24, [facility] V28) 10/30 Overview (09/08/2024): Right arm 09/2011 - excised Squamous cell skin cancer 11/22/2016 Overview (09/08/2024): Left forearm - ED&C Overactive bladder 10/16/2016 Encounters Date Type Department Care Team Description 09/04/[address] [facility] [address] [facility] 160 [place] [address] Kenya Johnson 08/31/2025 10:00 AM EST Office Visit Orthopedic Surgery [facility] [address] [facility] 250 [place] [address] Chantal, Carlos A, DPM Enchondroma of phalanx of foot (Primary Dx); Right foot pain; Neuropathy of right foot 08/26/2025 Telephone Orthopedic Surgery - [address] [phone] Carlos Cornejo DPM from Last 3 Months Immunizations Immunization Administration Dates Next Due Influenza Quadravalent, MDCK [...] DX:Anxiety Major depression DX:Major depres humaira Melanoma (CMS/HCC V24, CMS/HCC V28) DX:Melanoma (HCC) Melanoma in situ (CMS/HCC V2 4, CMS/HCC V28) 11/22/2016 DX:Melanoma in situ (HCC); C [...] - - Weight 62.6 kg (138 lb) 04/01/2025 1:42 PM EDT Height 172.7 cm (5' 7.99 ) 04/01/2025 1:42 PM ED T Body Mass Index 20.99 04/01/2025 1:42 PM EDT Plan of Treatment Upcoming Encounters Date Type Department Care Team (Late st Contact Info) Description 10/06/2025 1:00 PM EST Office Visit Orthopedic Surgery - [place] [address] 175 [facility] [address] [place] [phone] Carlos Cornejo, DPDevaughn 175 [facility] Donny [address] [place] [address] Health Maintenance Due Date Last Done Comments Breast Cancer Screening 1955 Colorectal Cancer Screening: Colonoscopy 1955 Pneumococcal Vaccine: 50+ Years (1 of 1 - PCV) 2007 COVID-19 Vaccine (3 - Pfizer risk series) 05/04/2021 04/06/2021, 03/16/2021 Cholesterol Screening (Lipid Panel) 09/30/2022 08/07/2017 Falls Risk Assessment 09/30/2022 Medicare Annual Wellness Visit 09/30/2022 Osteoporosis Screening (Bone Density Screening) 09/30/2022 Social Influencers of Health Screening 09/30/2022 Hypertension/CHF/CAD Annual BMP Blood Test 10/14/2022 08/23/2017 Depression Screening 10/29/2024 Influenza Vaccine (#1) 2025 4, 07/27/2023, 07/11/2022, Additional history exists DTaP,Tdap,and Td Vaccines (2 - Td or Tdap) 08/19/2028 08/19/2018 RSV Immunization Adult Patients (1 - 1-dose 75+ series) 01/02/2032 Hepatitis C Screening Completed 05/08/2016 Zoster Vaccines Completed 10/31/2022, 09/04/2022 HIB Vaccines Aged Out No longer eligi [...] * Annual BMP Blood Test (08/23/2017) Pathologist [facility] Annual BMP Blood Test Abstracted us Historical Provider HEALTH MAINTENANCE Final Result * Lipid panel (08/07/2017) LDL/HDL Ratio 3 0 - 4 Triglycerides 117 0 - 150 mg/dL Cholesterol 144 0 - 200 mg/dL HDL 47 >=40 mg/dL LDL Cholesterol 74 0 - 100 mg/dL Blood Venous blood specimen / Unknown Historical Provider LAB BLOOD ORDERABLES Niki l Result * Hepatitis C Screening (05/08/2016) Hepatitis C Screening Abstracted Historical Provider HEALTH MAINTENANCE Final Result from Last 3 Months or Most Recently Relevant to Health Maintenance Insurance MEDICARE [facility] MEDICAID ADV[employer] Care Teams Psychosocial Rehabilitation Counselor Relationship Specialty Start Date End Date Lela Lowery MD [address] [place] [address] PCP - General 04/10/23
== END 2025-10-02 14:47 | disposition home or self-care (01) ==
LOC: HO.NEURO 14:46
PROVIDERS: Visit Provider Podiatrist
DX: R20.0 Anesthesia of skin (principal); G57.91 Unspecified mononeuropathy of right lower limb
CPT/HCPCS: 95886; 95908

== ENCOUNTER → 2025-10-02 14:56 | Outpatient (BNV) | payer MEDICARE, OTHER, SELFPAY | PROVIDERS: Visit Provider Physical Medicine & Rehabilitation | DX: G57.91 Unspecified mononeuropathy of right lower limb (principal) | CPT/HCPCS: 95886; 95908 ==